=== PATIENT | male | born 1960 | race African-American/Black ===

== ENCOUNTER 2019-11-20 10:39 | Emergency (ER) | payer OTHER, SELFPAY ==
--- NOTE | ~2019-11-20 | XR_ITS ---
EXAMINATION: XR chest 2V DATE: 11/20/2019 11:42 INDICATION: Cough and shortness of breath and wheezing. TECHNIQUE: Frontal and lateral views of the chest were obtained. COMPARISON: Chest 2 views 03/08/2019 FINDINGS: The chest demonstrates clear lungs without pneumonia, pleural effusion, or pneumothorax. Th e heart size is normal. IMPRESSION: 1. No acute cardiopulmonary disease. Reviewed, dictated and finalized at location A. [employer]
[2019-11-20 10:49] VITALS: BP 148/95; PULSE 88; RESP 18; TEMP 37.1; O2SAT 97
--- NOTE | 2019-11-20 10:49 | ED.URI ---
HPI - URI/Sore Throat General Chief Complaint: Upper Respiratory Infection Stated Complaint: SOB Time Seen by Provider: 11/20/19 11:00 Source: patient and RN notes reviewed Mode of arrival: ambulatory Limitations: no limitations History of Present Illness HPI Narrative: 59-year-old male who presents to [facility] care with complaints of cough with increasing shortness of breath for the past one week. Patient has inhaler that he has been overusing for his dyspnea. Patient has scattered wheezing throughout lung field with tachypnea and accessory muscle use noted. Patient states that he does not smoke states history of tobacco use over 20 years ago.Patient states that he had an appointment with pulmonary physician but the doctors office called and rescheduled him for December. MD elicited complaint: cough Pertinent past history: other (Bronchitis) Onset (ago): week(s) (1) Consistency: progressively worsening Severity: moderate Description of mucous: yellow (light yellow and clear) Able to tolerate fluids by mouth: Yes Exacerbating factors: exertion, speaking and deep breaths Relieving factors: nothing Associated symptoms: rhinorrhea (clear), cough and shortness of breath Treatments prior to arrival: other (inhaler) Related Data Home Medications Medication Instructions Recorded Confirmed albuterol sulfate 1 inh INHALATION QID PRN 11/20/19 11/20/19 cetirizine 10 mg PO DAILY 11/20/19 11/20/19 ergocalciferol (vitamin D2) 1,250 mcg PO WEEKLY 11/20/19 11/20/19 [Vitamin D2] fluticasone furoate mcg INHALATION 11/20/19 hydrochlorothiazide 25 mg PO DAILY 11/20/19 11/20/19 ibuprofen 800 mg PO TID 11/20/19 11/20/19 montelukast 10 mg PO DAILY 11/20/19 11/20/19 simvastatin 40 mg PO DAILY 11/20/19 11/20/19 Allergies Allergy/AdvReac Type Severity Reaction Status Date / Time No Known Allergies Allergy Verified 10/17/19 12:51 Review of Systems Review of Systems: Narrative: CONSTITUTIONAL: Denies fever, chills, or sweats. EYES: Denies visual changes, redness, or discharge. ENT: Denies rhinorrhea, congestion, sore throat, or otalgia. CARDIOVASCULAR: Denies chest pain, palpitations, or edema.tightness to chest with breathing reported RESPIRATORY: Positive cough or dyspnea. GASTROINTESTINAL: Denies abdominal pain, nausea, vomiting, or diarrhea. GENITOURINARY: Denies dysuria or hematuria. SKIN: Denies rash or itching. MUSCULOSKELETAL: Denies back pain, joint pain, or myalgia. NEUROLOGIC: Denies headache, numbness, or weakness. PSYCHIATRIC:Positive anxiety no depression. All systems reviewed & are unremarkable except as noted in HPI and below PMFSH Past Medical History Medical History (Updated 11/21/19 @ 15:14 by Rica Eastman NP) Asthma Bronchitis High cholesterol HTN (hypertension) Vitamin D deficiency Family History Family History Other Diabetes mellitus Hypertension Social History Social History (Updated 11/21/19 @ 15:17 by Rica Eastman NP) Smoking status: Unknown if ever smoked Gender identity (if verbalized by the patient): Male Comments At time of signature, agree with nursing past medical, surgical, social and family history. There is no relevant family history pertinent to the presenting complaint Exam Narrative: Exam Narrative: GENERAL: Well-appearing, well-nourished, and in mild distress. HEAD: Normocephalic, atraumatic. EYES: PERRLA and EOMI. ENT: Nares clear,clear rhinorrhea or epistaxis. Mucous membranes moist TM's normal with good light reflex, throat pink no swelling redness or exudate. NECK: Supple.no lymphadenopathy CHEST: scattered wheezing with diminished breath sounds on auscultation. No respiratory distress. HEART: Regular rate and rhythm. No murmur heard. Normal peripheral pulses. ABDOMEN: Soft, nontender, nondistended, normal active bowel sounds. EXTREMITIES: Normal range of motion. No edema. SKIN: Warm, dry, no rash. NEURO: No focal
[2019-11-20] MEDS: IPRATROPIUM BR 0.02% INH SOLN 0.5 MG/2.5 ML VIAL INHALATION (11:16)
[2019-11-20] MEDS: ALBUTEROL SULFATE NEB 2.5 MG/3 ML INH INHALATION (11:16)
[2019-11-20 11:32] VITALS: O2SAT 95
== END 2019-11-20 12:07 | disposition home or self-care (01) ==
PROVIDERS: Emergency Provider Registered Nurse
DX: J40 Bronchitis, not specified as acute or chronic (principal); E78.00 Pure hypercholesterolemia, unspecified; I10 Essential (primary) hypertension; E55.9 Vitamin D deficiency, unspecified
CPT/HCPCS: 71046; 94640; 99213; G0463

== ENCOUNTER 2020-09-12 09:57 | Emergency (ER) | payer OTHER, SELFPAY ==
--- NOTE | ~2020-09-12 | XR_ITS ---
EXAMINATION: XR chest 2V 09/12/2020 10:29 INDICATION: Asthma. Wheezing. PROCEDURE: 2 view chest COMPARISON: 11/20/2019 FINDINGS: The lungs are clear. The cardiomediastinal silhouette is within normal limits. There are no pleural effusions. There is no pneumothorax suspected. IMPRESSION: 1: NO ACUTE CARDIOPULMONARY DISEASE. Reviewed, dictated and finalized at location A. [employer]
[2020-09-12 10:03] VITALS: BP 170/104; PULSE 95; RESP 24; TEMP 36.4; O2SAT 99
--- NOTE | 2020-09-12 10:05 | ED.GENADULT ---
HPI - General Adult General Chief complaint: Upper Respiratory Infection Stated complaint: C/O ASTHMA Source: patient Mode of arrival: ambulatory Limitations: no limitations History of Present Illness HPI narrative: 60 y/o AA male. PMH Includes: Presents to Urgent Care clinic today with acute complaints of cough, intermittent wheezing, as well as 'asthma acting up' for the past 1 month. He describes episodes of 'yellow' phlegm production. No fever, chills, chest pain, abdominal pain, N/V/D. Positive intermittent dyspnea. He denies known ill contact. Former smoker. Quit > 20 years ago. Followed by Pulmonology Dr. Chávez. Patient states to have a pulmonology follow-up in next 3 weeks. He reports to be out of home Nebulizer solution. Has been using HH HFA w/o relief. No additional acute c/o upon PE. Related Data Home Medications Medication Instructions Recorded Confirmed ergocalciferol (vitamin D2) 1,250 mcg PO WEEKLY 11/20/19 09/12/20 [Vitamin D2] fluticasone furoate 50 mcg INHALATION Q4-6H PRN 11/20/19 09/12/20 hydrochlorothiazide 25 mg PO DAILY 11/20/19 09/12/20 ibuprofen 800 mg PO TID 11/20/19 09/12/20 montelukast 10 mg PO DAILY 11/20/19 09/12/20 Allergies Allergy/AdvReac Type Severity Reaction Status Date / Time No Known Allergies Allergy Verified 09/12/20 10:40 Review of Systems Review of Systems: Narrative: CONSTITUTIONAL: Denies fever, chills, sweats. EYES: Denies visual changes, redness, discharge. ENT: Denies rhinorrhea, congestion, sore throat, otalgia. CARDIOVASCULAR: Denies chest pain, palpitations, edema. RESPIRATORY: Positive dyspnea, wheezing, cough. GASTROINTESTINAL: Denies abdominal pain, nausea, vomiting, diarrhea. GENITOURINARY: Denies dysuria, hematuria, abnormal discharge SKIN: Denies rash or itching. MUSCULOSKELETAL: Denies acute back pain, joint pain, or myalgia. NEUROLOGIC: Denies numbness, or focal weakness. PSYCHIATRIC: Denies anxiety or depression. [facility] Past Medical History Medical History Asthma Bronchitis High cholesterol HTN (hypertension) Vitamin D deficiency Family History Family History Other Diabetes mellitus Hypertension Social History Social History Smoking status: Unknown if ever smoked Gender identity (if verbalized by the patient): Male Exam Narrative: Exam Narrative: GENERAL: This is a well-nourished, well-developed patient, in no apparent distress. HEAD: normocephalic, atraumatic. EYES: PERRL. Sclera clear/white. Vision is grossly intact. EARS: External ears normal, auditory canals clear and without drainage, TMs normal without perforation. Hearing grossly intact. NOSE: External nose normal with no obvious nasal discharge, nares without redness, no rhinorrhea. THROAT: Mucous membranes moist, posterior pharynx clear. NECK: Neck supple, non-tender without lymphadenopathy, masses or thyromegaly. CARDIOVASCULAR: Regular rate and rhythm without murmurs, gallops, or rubs. RESPIRATORY: With bilateral upper lobe wheezing-mild. No rales, or rhonchi. Chest wall rises symmetrically. GASTROINTESTINAL: Abdomen soft, non-tender, nondistended. Bowel sounds are active. No hepato-splenomegaly, or palpable masses. No guarding. SKIN: warm, intact with no suspicious lesions or rash, good texture and turgor. NEURO: awake, alert, and oriented to person, place and time. There were no obvious focal neurologic abnormalities. Steady gait EXTREMITIES: Normal range of motion. No edema. No calf tenderness. Negative Homans sign bilaterally. BACK: Nontender without deformity or crepitance. No flank tenderness. [place] Coma Scale Eye Opening: Spontaneous 4 [place] Coma Scale Motor: Obeys Commands 6 [place] Coma Scale Verbal: Oriented 5 Const: General: no acute distress Orientation/consciousness: patient oriented x3 Co
[2020-09-12 10:18] VITALS: BP 170/104; PULSE 95; RESP 24; TEMP 36.4; O2SAT 99
[2020-09-12] MEDS: IPRATROPIUM BR 0.02% INH SOLN 0.5 MG/2.5 ML VIAL INHALATION (10:36)
[2020-09-12] MEDS: ALBUTEROL SULFATE NEB 2.5 MG/3 ML INH INHALATION (10:36)
== END 2020-09-12 10:59 | disposition home or self-care (01) ==
PROVIDERS: Emergency Provider Nurse Practitioner Adult Health; PCP Nurse Practitioner Family
DX: J40 Bronchitis, not specified as acute or chronic (principal); J45.21 Mild intermittent asthma with (acute) exacerbation; E78.00 Pure hypercholesterolemia, unspecified; I10 Essential (primary) hypertension; E55.9 Vitamin D deficiency, unspecified
CPT/HCPCS: 71046; 94640; 99213; G0463

== ENCOUNTER 2023-12-16 13:42 | Emergency (ER) | payer OTHER, SELFPAY ==
[2023-12-16 13:45] VITALS: BP 155/92; PULSE 92; RESP 18; TEMP 36.8; O2SAT 98
--- NOTE | 2023-12-16 14:01 | ED.EYEPROB ---
HPI - Eye Problem General Chief complaint: Eye Problems Stated complaint: Right Eye Problem Source: patient, RN notes reviewed and old records reviewed Mode of arrival: ambulatory Limitations: no limitations History of Present Illness HPI Narrative: 63-year-old male patient presents to [facility] with complaints right eye redness comments hearing patient states started a little over week ago. Patient states improved but then returned about 3 days ago. Patient has not tried anything at home. Patient denies pain at night. chief complaint: eye redness Onset (ago): week(s) (1) Related Data Home Medications Medication Instructions Recorded Confirmed albuterol sulfate 2.5 mg/3 mL See Rx Instructions .Route 12/16/23 12/16/23 (0.083 %) solution for nebulization .COMPLEX PRN sob albuterol sulfate 90 mcg/actuation See Rx Instructions .Route 12/16/23 12/16/23 aerosol inhaler .COMPLEX PRN sob hydrochlorothiazide 25 mg tablet 25 mg PO DAILY 12/16/23 12/16/23 losartan 50 mg tablet 50 mg PO BID 12/16/23 12/16/23 metformin 500 mg tablet 500 mg PO BID 12/16/23 12/16/23 montelukast 10 mg tablet 10 mg PO DAILY 12/16/23 12/16/23 rosuvastatin 40 mg tablet 40 mg PO DAILY 12/16/23 12/16/23 Allergies Allergy/AdvReac Type Severity Reaction Status Date / Time No Known Allergies Allergy Verified 12/16/23 14:00 Review of Systems Constitutional: Constitutional: Reports no additional constitutional complaints, Denies body ache(s), Denies chills, Denies fatigue, Denies fever(s) and Denies headache(s) Eyes: Eyes: Denies blurry vision, Denies change in vision and Denies photophobia Comments: Right eye redness and tearing ENT: Reports system reviewed and no additional complaints, except as documented, Denies vertigo, Denies dizziness, Denies ear discharge, Denies otalgia, Denies facial pain, Denies headache(s), Denies nasal congestion, Denies nasal discharge, Denies sinus pain, Denies sinus pressure and Denies sore throat Cardiovascular: Cardiovascular: Reports no additional cardiovascular complaints, Denies chest pain, Denies chest pain at rest, Denies rapid heart rate and Denies dyspnea Respiratory: Respiratory: Reports no additional respiratory complaints, Denies chest congestion, Denies cough, Denies pain on inspiration, Denies pain with cough and Denies dyspnea Gastrointestinal: Gastrointestinal: Denies abdominal pain, Denies diarrhea, Denies nausea and Denies vomiting Integumentary/Breasts: Skin/Breast: Denies rash Neurologic: Reports system reviewed and no additional complaints, except as documented, Denies vertigo, Denies dizziness and Denies headache(s) Endocrine: Endocrine: Denies fatigue PMFSH Past Medical History Medical History Asthma Bronchitis High cholesterol HTN (hypertension) Vitamin D deficiency Family History Family History Other Diabetes mellitus Hypertension Social History Social History Smoking status: Unknown if ever smoked Gender identity (if verbalized by the patient): Male Comments At the time of my signature, I reviewed and agree with the nursing past medical, surgical, social, and family history. There is no relevant family history pertinent to the patient complaint. Exam Const: General: cooperative, healthy appearing, no acute distress and well nourished Nutritional Appearance: well nourished Orientation/consciousness: patient oriented x3 Limitations: no limitations HENMT: Head: normal to inspection and normocephalic Ears: external ears normal, TM's normal bilaterally, EAC's normal and mastoids normal Face/Nose/Sinus: normal facial exam Face and sinus: normal facial exam Mouth: Yes Normal oral and palatal mucosa present, Yes oropharynx normal and Yes moist mucous membranes Throat: tonsils normal, uvula midlin
== END 2023-12-16 14:10 | disposition home or self-care (01) ==
PROVIDERS: Emergency Provider Registered Nurse; PCP Nurse Practitioner Family
DX: H10.9 Unspecified conjunctivitis (principal); J45.909 Unspecified asthma, uncomplicated; E78.00 Pure hypercholesterolemia, unspecified; I10 Essential (primary) hypertension
CPT/HCPCS: 99203; G0463